=== PATIENT | male | born 2005 | race Caucasian/White ===

== ENCOUNTER 2024-12-14 19:17 | Outpatient (REF) | payer OTHER, SELFPAY ==
--- NOTE | ~2024-12-14 | MR_ITS ---
CLINICAL HISTORY: PAIN MR left wrist without intravenous contrast Comparison: None provided Findings: No [id number] are available for review at this time. Bone marrow edema predominately involves the ulnar aspect of the triquetrum. Micro fracture also considered with cortex irregularity of the ulnar and volar cortex of the triquetrum (9 of series 10 and 16 of series 7). Mild fluid of the triangular fibular cartilage complex without definite rupture. Scaphoid lunate articulation and articular cartilage are intact. Mild/minimal edema noted of the ulnar margin of the hamate (16 of series 8). No dislocation. No soft tissue mass in this noncontrast study. No significant tenosynovitis or imaged tendon rupture of the wrists. Ulnar nerve and median nerve are unremarkable for noncontrast study. IMPRESSION: 1. Microfracture and/or edema of the ulnar aspect of the triquetrum. No displaced fracture. 2. Minimal edema of the ulnar margin of the hamate. 3. No tendon rupture or avulsion of the imaged flexors or imaged extensors. This document has been electronically signed by: Beny Tinsley MD on 12/14/2024 20:50:30
--- OUTSIDE RECORDS SUMMARY | 2024-12-14 20:24 | XMS_ITS | Clinical Summary ---
[facility] Address [address] [place] [id number] Care Team Providers Care Sox Analyst Name Role Phone Pcp, No Unavailable Unavailable Allergies Active Allergy Reactions Criticality Noted Date Comments Amoxicillin-Pot Clavulanate Diarrhea 01/01/20 18 Medications No known medications Active Problems No known active problems Encounters Date Type Department Care Team Description 09/13/2024 Clinical Update [facility] [address] [place] [address] Clinton Valencia from Last 3 Months Immunizations Immunization Administration Dates Next Due DTaP Vaccine 07/24/2008, 5,2003,11/14,2003 HPV Vaccine 9-valent Confidential 07/22/2018,05/2017 Hepatitis A Vaccine 0.5 ml 08/05/2013,07/08/2012 Hepatitis B Vaccine 04/03/2004,2003,2003 HiB Vaccine 10/28/2004,2003,2003 Influenza Vaccine 11/25/2016,01/18/2016 Influenza Vaccine Quadrivale nt 0.5mL IM PF Age 3Y+ Afluria ([id number]) 11/24/2017 Influenza Vaccine Quadrivale nt 0.5mL IM PF Age 6M+ ([id number]) 11/09/2019,12/22/2018 MMR Vaccine 08/13/2007,10/28/2004 Meningococcal MCV4P Vaccine 08/29/2019 Meningococcal MPSV4 Vaccine 07/05/2014 Pfizer Purple Cap(12+) Covid-19,mrna,lnp-s,pf,0.3ml ([id number]) 01/31/2021,06/27/2020,06/05/2020 Pneumococcal (PCV-7) Vaccine 2004, 2003,2003,09/05 Poliovirus Vaccine Inactivated (IPV) 09/2008,12/23/2004,2003,09/05 Tdap Vaccine (7y+) 0.5 mL IM (Adacel, Boostrix)TDAP VACCINE AGE 7+ 07/05/2014 Varicella Vaccine 08/13/2007,2004 Family History Medical History Relation Name Comments Kidney Cancer Maternal Grandfather Allergic Rhinitis Other Hearing loss Other Heart Disease Other Hypertension Other Relation Name Status Comments Maternal Grandfather Alive Other Social History Tobacco Use Types Packs/Day Years Used Date Smoking Tobacco: Never Smokeless Tobacco: Never PHQ-2 Answer Date Recorded PHQ-A Severity Score - follow up recommended for a score of 10+ 0 09/17/2021 Sex and Gender Information Value Date Recorded Sex Assigned at Not on file Legal Sex Male 6:49 AM EST Gender Identity Not on file Sexual Orientation Not on file Last Filed Vital Signs Vital Sign Reading Time Taken Comments Blood Pressure 118/62 09/17/2021 10:03 AM EDT Pulse 74 08/29/2019 1:52 PM EDT Temperature 36 C (96.8 F) 11/01/2013 2:38 PM EDT Respiratory Rate 12 11/01/2013 2:38 PM EDT Oxygen Saturation 99% 11/01/2013 2:38 PM EDT Inhaled Oxygen Concentration 99% 11/01/2013 2 :38 PM EDT Weight 94.3 kg (208 lb) 09/17/2021 10:03 AM EDT Height 186.5 cm (6' 1.43 ) 09/17/2021 10:03 AM E DT Body Mass Index 27.13 09/17/2021 10:03 AM EDT Plan of Treatment Health Maintenance Due Date Last Done Comments Pediatric Cardiac Risk Screening 06/30/2006 HIV Screening with Documented Verbal Consent 06/30/2018 Hepatitis C Screening 06/30/2021 Depression Screening 09/17/2022 09/17/2021, 07/05/2020, 07/05/2020, Additional history exists Well Child Visit Annual 09/17/2022 09/18/19 22, 07/05/2020, 08/29/2019, Additional history exists TDAP/TD Vaccine 18+ 07/05/2024 07/05/2014 COVID-19 Vaccine ( season) 2024 01/31/2021, 06/27/2020, 06/05/2020 Influenza Vaccine (#1) 2024 3, 11/09/2019, 12/22/2018, Additional history exists Hepatitis B Vaccines Completed 04/03/2004, 2003, 2003 Pneumococcal: Peds (0-5y) OR At-Risk Patient (6-49y) Aged Out 2004, 2003, 2003, Additional history exists No longer eligible based on patient's age to complete this topic Varicella Vaccines Completed 08/13/2007, 2004 HPV Vaccines Completed 07/22/2018, 07/20/2017 Goals Goal Patient Goal Type Associated Problems Recent Progress Patient-Stated? Author Goal Goal No Polina Patel MA Note: Eat more fruits and vegatables Insurance [employer] Care Teams Sox Analyst Relationship Specialty Start Date End Date Pcp, No PCP - Generic [facility] PCP 08/12/24
== END 2024-12-14 19:18 | disposition home or self-care (01) ==
LOC: HO.MRI 19:17
PROVIDERS: Visit Provider Family Medicine
DX: M25.532 Pain in left wrist (principal)
CPT/HCPCS: 73221

== ENCOUNTER → 2024-12-14 19:36 | Outpatient (BNV) | payer OTHER, SELFPAY | PROVIDERS: Visit Provider Radiology Neuroradiology | DX: M25.532 Pain in left wrist (principal) | CPT/HCPCS: 73221 ==